=== PATIENT | female | born 1985 | race Caucasian/White ===

== ENCOUNTER 2018-09-17 15:06 | Outpatient (CLI) | payer BC ==
--- NOTE | 2018-09-17 17:05 | RAD ---
AP PELVIS RADIOGRAPH 09/17/18 HISTORY: Left hip pain. FINDINGS: There is no fracture, dislocation or other osseous abnormality. IMPRESSION: No acute osseous abnormality. POS: [facility]
--- NOTE | 2018-09-17 17:45 | RAD ---
TWO VIEWS LEFT HIP: 09/17/18 HISTORY: Left hip pain. FINDINGS: There is no evidence of fracture, dislocation, or other osseous abnormality involving the left hip. A phlebolith overlies the left hemipelvis. IMPRESSION: No acute osseous abnormality. POS: C
== END 2018-09-17 15:07 | disposition home or self-care (01) ==
LOC: BICRAD 15:06
PROVIDERS: ATTEND Physician Assistant
DX: M25.552 Pain in left hip (principal)
CPT/HCPCS: 72170

== ENCOUNTER 2021-03-28 12:14 | Outpatient (CLI) | payer BC, OTHER | END 2021-03-28 12:15 | disposition home or self-care (01) | LOC: BICMRI 12:14 | PROVIDERS: ATTEND Physician Assistant | DX: M25.552 Pain in left hip (principal); G89.29 Other chronic pain ==